=== PATIENT | female | born 1970 | race Caucasian/White ===

== ENCOUNTER 2020-09-11 12:17 | Emergency (ER) | payer MEDICAID ==
[~2020-09-11] VITALS: Ht 177.8 cm; Wt 91.2 kg
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
--- NOTE | 2020-09-11 12:56 | NUR ---
[employer] UNIT 9A5, OFFICERS JORGE AND VY.
[2020-09-11] MEDS ORDERED: HYDROCODONE/APAP 5/325MG TABLET PO ONE ×2 (13:00→14:00)
[2020-09-11] MEDS ORDERED: HYDROCODONE/APAP 5/325MG TABLET ONE (13:03)
[2020-09-11] MEDS ORDERED: MORPHINE SULFATE INJ 2 MG/ML DISP.SYRIN ONE (13:36)
[2020-09-11] MEDS ORDERED: MORPHINE SULFATE INJ 2 MG/ML DISP.SYRIN IM ONE (14:00)
[2020-09-11] MEDS ORDERED: CYCL5TAB PO (14:38)
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
[2020-09-11] MEDS ORDERED: KETOROLAC TROMETHAMINE 15 MG/ML VIAL ONE (14:43)
[2020-09-11] MEDS ORDERED: KETOROLAC TROMETHAMINE INJ 30 MG/ML VIAL IM ONE (15:00)
--- NOTE | 2020-09-11 15:08 | NUR ---
PATIENT AMBULATORY WITH STEADY GAIT. NO DISTRESS NOTED. CONSULTED BY ORTHOPEDIC CAST SPECIALIST. Patient given written and verbal discharge instructions. Patient verbalizes understanding of instructions. Patient is ambulatory with steady gait. Refuses offer of long-term placement. Patient given list of available shelters in surrounding area.
[2020-09-11 15:10] VITALS: BP 167/97
== END 2020-09-11 15:11 | disposition home or self-care (01) ==
LOC: ER 12:19
DX: S32.048A Other fracture of fourth lumbar vertebra, initial encounter for closed fracture (principal); S32.058A Other fracture of fifth lumbar vertebra, initial encounter for closed fracture; M51.17 Intervertebral disc disorders with radiculopathy, lumbosacral region; I10 Essential (primary) hypertension; Z88.0 Allergy status to penicillin; Z79.899 Other long term (current) drug therapy; Y08.89XA Assault by other specified means, initial encounter; Y93.89 Activity, other specified; Y92.89 Other specified places as the place of occurrence of the external cause; Y99.8 Other external cause status
CPT/HCPCS: 72100; 96372 ×2; 99284; A6403; J1885; J2270